=== PATIENT | male | born 1995 | race Caucasian/White ===

== ENCOUNTER 2020-11-10 10:24 | Emergency (ER) | payer SELFPAY ==
--- NOTE | ~2020-11-10 | XR_ITS ---
XR abdomen obstructive series DATE: 11/10/2020 11:26 INDICATION: Nausea, emesis TECHNIQUE: Supine and upright AP views COMPARISON: None FINDINGS: The lung bases are clear. Heart size appears normal. Distortion is intact. No visceromegaly is evident. There are some nondilated gas containing right lower quadrant small bowel segments with air-fluid lev els but the abdomen is otherwise relatively gasless. No intraperitoneal free air. Included skeletal structures are unremarkable. IMPRESSION: Mild right lower quadrant adynamic ileus is suggested Reviewed, dictated and finalized at [facility] Reviewed, dictated and finalized at [facility].
[2020-11-10 10:25] VITALS: BP 140/97; PULSE 97; RESP 16; TEMP 36.8; O2SAT 96
[2020-11-10] MEDS: SODIUM CHLORIDE 0.9% IV 1,000 ML 999 ML (10:49)
[2020-11-10] MEDS: ONDANSETRON INJ 4 MG/2 ML VIAL IV PUSH (11:06)
--- NOTE | 2020-11-10 12:16 | ED.NAVMDI ---
HPI - Nausea/Vomiting/Diarrhea General Chief complaint: Nausea/Vomiting/Diarrhea Stated complaint: vomiting Time Seen by Provider: 11/10/20 10:30 Source: patient Mode of arrival: ambulatory Limitations: no limitations History of Present Illness HPI Narrative: Patient comes in stating he has had nausea and vomiting since this am. He was taking oxycodone for a hand injury he had, and believes his nausea and emesis is related to that, since it seems to have been precipitated by the narcotic. He has had recent hand surgery, and states he has pins in his fingers from the surgery to hold them in place as they heal. He has been taking oxycodone, for hand pain. Nausea has been moderately severe, to severe, associated with recurrent emesis at home since he woke this am. He had some nausea last pm. Measures taken at home, have not decreased the nausea or vomiting. MD elicited complaint: nausea and vomiting Pertinent past history: other (narcotic use) Onset (ago): hour(s) Description of vomiting: food contents Associated nausea: Yes Associated abdominal pain: No Exacerbating factors: eating Relieving factors: vomiting (partial relief with emesis) Associated symptoms: denies other symptoms Treatment prior to arrival: fluids Related Data Allergies Allergy/AdvReac Type Severity Reaction Status Date / Time No Known Allergies Allergy Unverified 01/10/17 01:54 Review of Systems Constitutional: Constitutional: Reports no additional constitutional complaints Eyes: Eyes: Reports no additional eye complaints ENT: Reports system reviewed and no additional complaints, except as documented Cardiovascular: Cardiovascular: Reports no additional cardiovascular complaints Respiratory: Respiratory: Reports no additional respiratory complaints Gastrointestinal: Gastrointestinal: Reports no additional gastrointestinal complaints Genitourinary: Genitourinary: Reports no additional male genitourinary complaints Musculoskeletal: Musculoskeletal: Reports no additional musculoskeletal complaints Integumentary/Breasts: Skin/Breast: Reports system reviewed and no additional complaints, except as docu Neurologic: Reports system reviewed and no additional complaints, except as documented Psychiatric: Psychiatric: Reports no additional psychiatric complaints Endocrine: Endocrine: Reports no additional endocrine complaints Hematologic/Lymphatic: Hematologic/Lymphatic: Reports no additional hematologic/lymphatic complaints Allergic/Immunologic: Allergic/Immunologic: Reports no additional allergic/immunologic complaints PMFSH Past Medical History Medical History (Updated 11/11/20 @ 01:20 by Sami Alicia MD) No significant medical problems Surgical History Surgical History (Updated 11/11/20 @ 01:21 by Sami Alicia MD) History of myringotomy History of tonsillectomy Family History Family History (Updated 11/11/20 @ 01:22 by Sami Alicia MD) Mother Heart disease Atrial fibrillation Diabetes mellitus Social History Social History (Updated 11/11/20 @ 01:23 by Sami Alicia MD) Smoking status: Current every day smoker Tobacco type: e-cigarettes/vaping Alcohol use details: Denies Substance use type: marijuana Exam Const: General: healthy appearing, no acute distress and alert Orientation/consciousness: patient oriented x3 HENMT: Head: normal to inspection Ears: external ears normal and TM's normal bilaterally General nose exam: Normal external nose present Mouth: Yes Normal oral and palatal mucosa present Throat: posterior oropharynx normal Eyes: Conjunctivae: conjunctivae normal Neck: Neck: normal visual inspection and no lymphadenopathy Chest: Chest palpation & inspection: normal inspection of the chest Resp: Effort & Inspection: normal respiratory effort Auscultation: clear to auscultation bilaterally Cardio: Rate: regular rate Rhythm: regular rhythm GI: GI Palp: Yes Soft to palpation (nontender
[2020-11-10 12:45] VITALS: BP 129/87; PULSE 81; RESP 16; O2SAT 100
== END 2020-11-10 12:45 | disposition home or self-care (01) ==
PROVIDERS: Emergency Provider Emergency Medicine
DX: R11.2 Nausea with vomiting, unspecified (principal)
CPT/HCPCS: 74019; 96361; 96374; 99283; 99284; J2405; J7030

== ENCOUNTER 2022-08-21 12:32 | Outpatient (NON) | payer SELFPAY | END 2022-08-21 12:33 | disposition home or self-care (01) | LOC: CHSLAB 12:32 | PROVIDERS: Visit Provider Family Medicine | DX: Z20.2 Contact with and (suspected) exposure to infections with a predominantly sexual mode of transmission (principal); Z72.51 High risk heterosexual behavior | CPT/HCPCS: 87491; 87591; 87661 ==

== ENCOUNTER 2024-05-07 22:29 | Emergency (ER) | payer OTHER, SELFPAY ==
[2024-05-07 22:31] VITALS: BP 155/104; PULSE 91; RESP 18; TEMP 37.4; O2SAT 100
--- NOTE | 2024-05-07 22:43 | ED_ITS ---
HPI - General Adult General Chief complaint: Dental/Oral Stated complaint: tooth ache Time Seen by Provider: 05/07/24 22:35 History of Present Illness HPI narrative: Efren is a previously healthy 28M that presented to the ED with pain in his left lower molars. He has two bad teeth that are due to be extracted in a couple weeks. He cannot bear the pain in the mean time. No dysphagia, fevers, or respiratory distress. Related Data Allergies Allergy/AdvReac Type Severity Reaction Status Date / Time No Known Allergies Allergy Verified 05/07/24 22:50 Review of Systems Review of Systems: All systems reviewed & are unremarkable except as noted in HPI and below PMFSH Past Medical History Medical History No active medical problems No significant medical problems Surgical History Surgical History History of myringotomy History of placement of ear tubes History of surgery on arm History of tonsillectomy Hx of tonsillectomy Family History Family History Mother Diabetes mellitus Father No problems noted. 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 Gender identity (if verbalized by the patient): Male Exam Const: General: cooperative, healthy appearing, comfortable, no acute distress, well developed, alert, awake and Physically active Orientation/c onsciousness: oriented to person, oriented to place and oriented to time HENMT: Head: normal to inspection, normocephalic and atraumatic Ears: hearing grossly normal bilaterally and external ears normal Face/Nose/Sinus: Normal external nose present Other: left lower molars are broken with erythematous bases and TTP Eyes: General: appearance normal, both eyes and all related structures Periorbital: periorbital findings normal Sclera: sclerae normal Pupils: Equal, round and reactive pupils present Neck: Neck: normal visual inspection Chest: Chest palpation & inspection: normal inspection of the chest Resp: Effort & Inspection: normal respiratory effort Cardio: Jugular venous distension: no JVD Rate: regular rate Rhythm: regular rhythm GI: Inspection: normal to inspection GI Palp: Yes Soft to palpation Auscultation: normal bowel sounds Skin: General skin exam: normal color and no rashes or lesions noted Neuro: General: oriented to person, oriented to place and oriented to time Cranial nerves: Yes Equal, round and reactive pupils present Extrem: General: normal to inspection Course Course Emergency Course: ordered Augmentin and Toradol Vital Signs Vital signs: Vital Signs Temperature 99.4 F 05/07/24 22:31 Pulse Rate 91 05/07/24 22:31 Respiratory Rate 18 05/07/24 22:31 Blood Pressure 155/104 H 05/07/24 22:31 Pulse Oximetry 100 05/07/24 22:31 Oxygen Delivery Room Air 05/07/24 22:31 Temperature 99.4 F 05/07/24 22:31 Pulse Rate 91 05/07/24 22:31 Respiratory Rate 18 05/07/24 22:31 Blood Pressure 155/104 H 05/07/24 22:31 Pulse Oximetry 100 05/07/24 22:31 Oxygen Delivery Room Air 05/07/24 22:31 Medical Decision Making Vital Signs Vital Signs: Vital Signs Temperature 99.4 F 05/07/24 22:31 Pulse Rate 91 05/07/24 22:31 Respiratory Rate 18 05/07/24 22:31 Blood Pressure 155/104 H 05/07/24 22:31 Pulse Oximetry 100 05/07/24 22:31 Oxygen Delivery Room Air 05/07/24 22:31 Temperature 99.4 F 05/07/24 22:31 Pulse Rate 91 05/07/24 22:31 Respiratory Rate 18 05/07/24 22:31 Blood Pressure 155/104 H 05/07/24 22:31 Pulse Oximetry 100 05/07/24 22:31 Oxygen Delivery Room Air 05/07/24 22:31 Discharge Plan Discharge Clinical Impression: Chronic dental infection Patient Disposition: Home, Self-Care Condition: Stable Instructions: Antibiotic Form Prescriptions: New amoxicillin-pot clavulanate [Augmentin] 500-125 mg tablet 1 tablet PO Q12H Qty: 10 0RF hydrocodone-acetaminophen 5-325 mg tablet 1 tablet PO Q8H PRN (Reason: pain) Qty: 10 0RF Follow-up/Referrals: UNKNOWN,DOCTOR [Primary Care Provider] - Stand Alone Forms: Work/School Release IP
[2024-05-07] MEDS: KETOROLAC 30 MG/ML VIAL (*BKC) IM (22:57)
[2024-05-07] MEDS: AMOXICILLIN/CLAVULANATE K 875-125 MG TAB 1 TABLET PO (22:58)
[2024-05-07 23:19] VITALS: BP 148/96
== END 2024-05-07 23:19 | disposition home or self-care (01) ==
LOC: CHSED 23:08
PROVIDERS: Emergency Provider Family Medicine
DX: K04.7 Periapical abscess without sinus (principal); F17.290 Nicotine dependence, other tobacco product, uncomplicated
CPT/HCPCS: 96372; 99283; A9270; J1885

== ENCOUNTER 2024-09-11 22:37 | Observation (INO) | payer OTHER, SELFPAY ==
--- NOTE | ~2024-09-11 | CT_ITS ---
Non-contrast CT scan of the Abdomen and Pelvis Clinical indication: Epigastric pain Technique: 2.5 mm axial scans were obtained through the abdomen and pelvis without intravenous or or al contrast. Dose reduction technique was used on this scan by utilizing automated exposure control a nd iterative reconstruction technique. The dose-length product (DLP) was 789.06 mGy-cm. Findings: Images through the lung bases reveal no abnormalities. There is no evidence of renal or ureteral calculi. The kidneys and the ureters are nondilated. The liver, spleen, pancreas, gallbladder, and adrenals appear normal. There is no aortic aneurysm. There is no evidence of bowel obstruction. Fluid-filled large and small bowel loops raise the possibi lity of diarrhea illness. Images through the pelvis were performed. There is no evidence of ascites or lymphadenopathy. Urinary bladder unremarkable. Tiny fat-containing right inguinal hernia present. No adnexal mass seen. No as cites. Impression: Fluid-filled large and small bowel loops raise the possibility of diarrhea illness. Tiny fat-containing right inguinal hernia. Reviewed, dictated and finalized at [facility]. Impression: Fluid-filled large and small bowel loops raise the possibility of diarrhea illn ess. Tiny fat-containing right inguinal hernia.
[2024-09-11 22:37] VITALS: BP 154/90; PULSE 104; RESP 18; TEMP 35.9; O2SAT 97
--- OUTSIDE RECORDS SUMMARY | 2024-09-11 22:38 | XMS_ITS | Clinical Summary ---
Author Organization [facility] Address [address] [place] [address] Care Team Providers Care Hotel Maintenance Technician Name Role Phone Farhat Neves MD Primary Care Provider [phone] Winston Ramos MD Unavailable Unavail able Allergies Active Allergy Reactions Criticality Noted Date Comments Escitalopram Other (see comment) 01/18/2017 Abdominal discomfort/diarrhea Medications amoxicillin-cla vulanate (AUGMENTIN) 500-125 MG tablet Take 1 tablet (500 mg of amoxicillin total) by mouth 2 (two) times daily. Active HYDROcodone-shelbi taminophen (NORCO) 5-325 MG tablet Take 1 tablet by mouth every 8 (eight) hours as needed for Pain. Active Active Problems Problem Noted Date Diagnosed Date Atypical chest pain 01/18/2017 Family History Medical History Relation Comments Diabetes Mother Heart Disease Mother atrial fibrillation Mother Relation Status Comments Maternal Grandfather Maternal Grandmother Mother Paternal Grandfather Paternal Grandmother Social History Tobacco Use Types Packs/Day Years Used Date Smoking Tobacco: Former Smokeless Tobacco: Never Alcohol Use Standard Drinks/Week Comments No 0 (1 standard drink = 0.6 oz pur e alcohol) Sex and Gender Information Value Date Recorded Sex Assigned at Not on file Legal Sex Male 1:43 PM CDT Gender Identity Not on file Sexual Orientation Not on file 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 Not on file Not on file Last Filed Vital Signs Vital Sign Reading Time Taken Comments Blood Pressure 150/86 05/08/2024 12:29 AM [employer] Pulse 87 05/08/2024 12:29 AM [employer] Temperature 37 C (98.6 F) 05/08/2024 12:29 AM [employer] Respiratory Rate 16 05/08/2024 12:29 AM [employer] DEBE[employer] Oxygen Saturation 99% 05/08/2024 12:29 AM [employer] DEBE[employer] Inhaled Oxygen Concentration - - Weight 86.2 kg (190 lb) 05/08/2024 12:29 AM [employer] Height 182.9 cm (6') 05/08/2024 12:29 AM [employer] DEBEAD[employer] Body Mass Index 25.77 05/08/2024 12:29 AM [employer]BEAD[employer] Plan of Treatment Health Maintenance Due Date Last Done Comments Annual Physical 11/15/1998 Hepatitis C 11/15/2013 DTaP, Tdap and Td Vaccines ( 1 - Tdap) 11/15/2014 Hepatitis B Vaccines (1 of 3 - 19+ 3-dose series) 11/15/2014 COVID-19 Vaccine (2023-2 5 season) 2024 Influenza Adult (#1) 2024 HPV Vaccines Aged Out No longer eligi ble based on patient's age to complete this topic Meningococcal B Vaccine Aged Out No l onger eligible based on patient's age to complete this topic Meningococcal Vaccine Aged Out No fidel melyssa eligible based on patient's age to complete this topic Pneumococcal Vaccine: Pediat rics (0 to 5 Years) and At-Risk Patients (6 to 64 Years) Aged Out No longer eligible b ased on patient's age to complete this topic RSV Immunizations Under 20 Months Aged Out No longer eligible based on patient's age to complete this topic Insurance [address] [place] [address] Care Teams Hotel Maintenance Technician Relationship Specialty Start Date End Date Farhat Neves MD [address] [place] [address] PCP - General FAMILY PRACTICE 01/15/17 Winston Ramos MD [address] [place] [address] CARDIOVASCULAR DISEASE 01/18/17
--- OUTSIDE RECORDS SUMMARY | 2024-09-11 22:38 | XMS_ITS | Encounter Summary ---
Author Organization [facility] Address [address] [place] [address] Care Team Providers Care Employee'S Representative Name Role Phone Farhat Neves MD Primary Care Provider [phone] Winston Ramos MD Unavailable Unavail able Encounter Details Date Type Department Care Team (Late st Contact Info) Description 12/03/2018 Abstract SFL CONVERSION [address] [place] [address] , Generic Conversion, Social History Tobacco Use Types Packs/Day Years Used Date Smoking Tobacco: Former Alcohol Use Standard Drinks/Week Comments No 0 (1 standard drink = 0.6 oz pur e alcohol) Sex and Gender Information Value Date Recorded Sex Assigned at Not on file Legal Sex Male 1:43 PM CDT Gender Identity Not on file Sexual Orientation Not on file 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 Not on file Not on file documented as of this encounter Plan of Treatment Not on file documented as of this encounter Visit Diagnoses Not on filedocumented in this encounter Additional Health Concerns Infection Onset Date Last Indicated Resolved Time COVID-19 Rule Out 02/11/2022 02/11/2022 02/11/2022 8:11 AM CDT COVID-19 Rule Out 02/11/2022 02/11/2022 02/11/2022 8:17 AM CDT COVID-19 Confirmed 02/11/2022 02/11/2022 12:32 AM CDT documented as of this encounter Care Teams Employee'S Representative Relationship Specialty Start Date End Date Farhat Neves MD [address] [place] [address] PCP - General FAMILY PRACTICE 01/15/17 Winston Ramos MD [facility] [place] [address] CARDIOVASCULAR DISEASE 01/18/17 documented as of this encounter
--- NOTE | 2024-09-11 22:45 | ED_ITS ---
HPI - Nausea/Vomiting/Diarrhea General Chief complaint: Nausea/Vomiting/Diarrhea Stated complaint: nausea Time Seen by Provider: 09/11/24 22:43 Source: patient Mode of arrival: ambulatory Limitations: no limitations History of Present Illness HPI Narrative: 28 years old white male drove himself to the emergency room with sudden onset of nausea, vomiting and diarrhea for the last 4 hours. Patient reports diarrhea about 30 times, vomiting about 4 times, denies any fever or chills. Patient reported that his 1 and have your all some was sick 3-4 days ago with fever, got better in 24 hours. Patient is healthy otherwise Related Data Home Medications ?Medication ?Instructions ?Recorded ?Confirmed ?Last Taken ?Type No Home Medications 09/11/24 09/11/24 Unknown History Allergies Allergy/AdvReac Type Severity Reaction Status Date / Time No Known Allergies Allergy Verified 09/11/24 22:40 Review of Systems 2 Review of Systems: All systems reviewed & are unremarkable except as noted in HPI and below PMFSH Past Medical History Medical History No significant medical problems No active medical problems Surgical History Surgical History History of myringotomy History of tonsillectomy History of surgery on arm History of placement of ear tubes Hx of tonsillectomy Family History Family History Mother Diabetes mellitus Father No problems noted. 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 Musculoskeletal: Normal range of motion, nontender back Neurologic: Alert and oriented ?3, FIBER DRIER OPERATOR is normal as tested, no gross motor deficit Course Vital Signs Vital signs: Vital Signs Temperature 35.9 C L 09/11/24 22:37 Pulse Rate 104 H 09/11/24 22:37 Respiratory Rate 18 09/11/24 22:37 Blood Pressure 154/90 H 09/11/24 22:37 Pulse Oximetry 97 09/11/24 22:37 Oxygen Delivery Room Air 09/11/24 22:37 Temperature 36.9 C 09/12/24 00:55 Pulse Rate 96 09/12/24 00:55 Respiratory Rate 18 09/12/24 00:55 Blood Pressure 136/88 09/12/24 00:55 Pulse Oximetry 98 09/12/24 00:55 Oxygen Delivery Room Air 09/12/24 00:55 MDM - Nausea/Vomiting/Diarrhea MDM Narrative Medical decision making narrative: patient presents with sudden onset of nausea, vomiting and diarrhea for hour prior to arrival to the emergency room Vital signs showing blood pressure 154/90, heart rate of 104, temperature 35.9? otherwise within normal limit Physical examination showing pale patient, with dry heaves. Differential diagnosis include viral gastroenteritis, less likely dehydration or electrolyte imbalance Blood workup today includes CBC, CMP showed WBC of 26.5 HIGH LIKELY SECONDARY TO STRESS SECONDARY TO VOMITING AND INFLAMMATION SECONDARY TO VIRAL INFECTION, hemoglobin 18.1 AND creatinine 1.4 SECONDARY TO LOSING QUITE A BIT OF FLUID Patient tested negative for flu, RSV and COVID PATIENT RECEIVED 2 L OF NORMAL SALINE, 8 MG OF ZOFRAN IV, PATIENT IS NOT ABLE TO TOLERATE ANY P.O. INTAKE WITH FREQUENT VOMITING ADMIT TO HOSPITALIST, OBSERVATION FOR IV FLUID Differential Diagnosis Differential diagnosis: Likely other ( as above) Medical Records Attestation: I reviewed the patient's medical records. Lab Data Attestation: I reviewed the patient's lab results. 09/11/24 23:16 09/11/24 23:16 Labs: Lab Results 09/11/24 09/11/24 Range/Units 22:52 23:16 WBC 26.5 H* (4.8-10.8) K/mm3 RBC 6.25 H (4.70-6.10) M/mm3 Hgb 18.1 H (14.0-18.0) g/dL Hct 53.9 (40.0-54.0) % MCV 86.2 (78.0-102.0) fL MCH 29.0 (27.0-31.0) pg MCHC 33.6 (32-36) g/dL RDW 12.0 (11.6-14.4) % Plt Count 303 (150-420) K/mm3 MPV 10.4 (8.7-11.0) fl Immature Gran % (Auto) Not Reportable Neut % (Auto) Not Reportable Lymph % (Auto) Not Reportable Hayes % (Auto) Not Reportable Eos % (Auto) Not Reportable Baso % (Auto) Not Reportable Lymph # (Auto) Not Reportable Hayes # (Auto) Not Reportable Eos # (Auto) Not Reportable Baso # (Auto) Not Reportable Abs Immat Gran (auto) Not Reportable Absolute Neuts (auto) Not Reportable Absolute Nucleated RBC Not Reportable Neutrophils % (Manual) 94 H (46-73) % Band Neutrophils % 0 (0-6) % Lymphocytes % (Manual) 2 L (18-44) % Monocytes % (Manual) 3 (3-9) % Eosinophils % (Manual) 1 (1-6) % Basophils % (Manual) 0 (0-1) % Nucleated RBC % Not Reportable Abs Neuts (Manual) 24.91 H (1.3-6.7) K/mm3 Abs Lymphs (Manual) 0.53 L (1.1-4.5) K/mm3 Abs Monocytes (Manual) 0.79 (0.1-0.90) K/mm3 Absolute Eos (Manual) 0.26 (0.02-0.50) K/mm3 Abs Basophils (Manual) 0.00 (0-0.1) K/mm3 Platelet Estimate Adequate (Adequate) Schistocytes Not Reportable Sodium 141 (136-145) mmol/L Potassium 4.1 (3.5-5.1) mmol/L Chloride 102 (98-108) mmol/L Carbon Dioxide 27 (21-32) mmol/L Anion Gap 12 (4-12) mmol/L BUN 17 (7-18) mg/dL Creatinine 1.48 H (0.70-1.30) mg/dL Estim Creat Clear Calc 83 ml/min Estimated GFR 57 L (59 - ) Glucose 124 H (70-99) mg/dL Calculated Osmolality 294 (285-295) mOsm/kg Calcium 10.1 (8.5-10.1) mg/dL Total Bilirubin 0.9 (0.00-1.00) mg/dL AST 46 H (15-37) U/L ALT 99 H (16-63) U/L Alkaline Phosphatase 105 (46-116) U/L Total Protein 9.1 H (6.4-8.2) g/dL Albumin 4.9 (3.4-5.0) g/dL Influenza A (RT-PCR) Negative (Negative) Influenza B (RT-PCR) Negative (Negative) RSV (RT-PCR) Negative (Negative) SARS-CoV-2 RNA (RT-PCR) Negative (Negative) Critical Care Time Critical Care Time Critical Care Time: Yes Total Critical Care Time: 30 Discharge Plan Discharge Clinical Impression: Gastroenteritis, JANE (acute kidney injury), Intractable vomiting Patient Disposition: Still a Patient Condition: Stable Additional Instructions: ADMIT TO HOSPITALIST Patient Language: Sami Prescriptions: No Action No Home Medications Follow-up/Referrals: UNKNOWN,DOCTOR [Primary Care Provider] -
--- NOTE | 2024-09-11 22:48 | PC.NURSE ---
covid swab sent to lab
[2024-09-11] MEDS: SODIUM CHLORIDE 0.9% IV 2,000 ML 999 ML IV CONT (23:21)
[2024-09-11 23:22] LABS: Hematocrit 53.9 % (40.0-54.0); Hemoglobin 18.1 g/dL (14.0-18.0); Mean Corpuscular HGB Conc 33.6 g/dL (32-36); Mean Corpuscular Volume 86.2 fL (78.0-102.0); Mean Platelet Volume 10.4 fl (8.7-11.0); Platelet Count Result 303 K/mm3 (150-420); Red Blood Count 6.25 M/mm3 (4.70-6.10)
[2024-09-11] MEDS: ONDANSETRON INJ 4 MG/2 ML VIAL 8 MG IV PUSH (23:22)
--- NOTE | 2024-09-11 23:22 | PC.NURSE ---
patient had active episode of emesis as RN was in patient room to start IV. patient given fresh emesis bag and wash cloth. iv started and patient medicated per order, see MAR. call light within reach and patient given warm blanket per request. lights dimmed for comfort.
[2024-09-11 23:27] LABS: White Blood Count 26.5 K/mm3 (4.8-10.8)
[2024-09-11 23:37] LABS: Band Neutrophils Percent 0 % (0-6); Basophils Percent Manual 0 % (0-1); Eosinophils Absolute Manual 0.26 K/mm3 (0.02-0.50); Eosinophils Percent Manual 1 % (1-6); Lymphocytes Absolute Manual 0.53 K/mm3 (1.1-4.5); Lymphocytes Percent Manual 2 % (18-44); Monocytes Absolute Manual 0.79 K/mm3 (0.1-0.90); Monocytes Percent Manual 3 % (3-9); Neutrophils Absolute Manual 24.91 K/mm3 (1.3-6.7); Neutrophils Percent Manual 94 % (46-73); Platelet Estimate Adequate (Adequate)
[2024-09-11 23:37] LABS: Influenza A QL RT-PCR Negative (Negative); Influenza B QL RT-PCR Negative (Negative); RSV RNA, RT-PCR Negative (Negative); SARS-CoV-2 RNA PCR Negative (Negative)
[2024-09-11 23:38] LABS: Alanine Aminotransferase 99 U/L (16-63); Albumin Level 4.9 g/dL (3.4-5.0); Alkaline Phosphatase 105 U/L (46-116); Anion Gap 12 mmol/L (4-12); Aspartate Amino Transferase 46 U/L (15-37); Bilirubin,Total 0.9 mg/dL (0.00-1.00); Blood Urea Nitrogen 17 mg/dL (7-18); Calcium 10.1 mg/dL (8.5-10.1); Carbon Dioxide 27 mmol/L (21-32); Chloride 102 mmol/L (98-108); Estimated CRCL calculation 83 ml/min; Estimated Glomerular Filt Rate 57; Glucose 124 mg/dL (70-99); Osmolality Calculated 294 mOsm/kg (285-295); Potassium 4.1 mmol/L (3.5-5.1); Sodium 141 mmol/L (136-145); Total Protein 9.1 g/dL (6.4-8.2)
[2024-09-12] VITALS (7 sets, daily range): BP systolic 115–136; BP diastolic 68–88; PULSE 89–97; RESP 17–20; TEMP 36.8–38.2; O2SAT 96–98; BMI 30.9
--- NOTE | 2024-09-12 00:12 | PC.NURSE ---
patient checked, adjusted on stretcher for comfort. ivf infusing. patient given ice chips per request. RN monitoring. patient update provided.
[2024-09-12] MEDS: diphenhydrAMINE HCl INJ 50 MG/ML VIAL IV PUSH (01:00)
[2024-09-12] MEDS: METOCLOPRAMIDE HCL INJ 10 MG/2 ML VIAL IV PUSH (01:00)
--- NOTE | 2024-09-12 01:10 | PC.NURSE ---
patient medicated per order after second episode of emesis as witness by RN and ERP. IVF infused. ERP updated. patient aware and agreeable to plan for admission. call light within reach.
[2024-09-12] MEDS: SODIUM CHLORIDE 0.9% IV 1,000 ML 200 ML IV CONT ×5 (01:48→23:07)
--- NOTE | 2024-09-12 01:51 | ADMGEN ---
This patient, Efren Amaral, was admitted to 2nd Floor Room 226-1. Patient oriented to hospital policies and general routines including ID bracelet, bed and alarms, visiting hours, pain management, procedures, bathroom and other care routines, personal items, smoking policy, room service/diet, and visiting hours. Information on how to activate the Rapid Response Team has been discussed. Patient are encouraged to report perceived risks to care and to ask questions if they do not understand what they are told or what they should do.
[2024-09-12 05:46] LABS: Basophils Absolute Auto 0.02 K/mm3 (0.00-0.10); Basophils Percent Auto 0.1 % (0.0-1.0); Eosinophils Absolute Auto 0.01 K/mm3 (0.02-0.50); Eosinophils Percent Auto 0.1 % (1.0-6.0); Hematocrit 47.1 % (40.0-54.0); Hemoglobin 15.7 g/dL (14.0-18.0); Immature Granulocyte Percent A 0.6 % (0.0-0.0); Lymphocytes Absolute Auto 0.22 K/mm3 (1.10-4.50); Lymphocytes Percent Auto 1.4 % (18.0-42.0); Mean Corpuscular HGB Conc 33.3 g/dL (32-36); Mean Corpuscular Hemoglobin 28.9 pg (27.0-31.0); Mean Corpuscular Volume 86.6 fL (78.0-102.0); Mean Platelet Volume 9.9 fl (8.7-11.0); Monocytes Absolute Auto 0.46 K/mm3 (0.10-0.90); Neutrophils Absolute Auto 14.72 K/mm3 (1.70-7.20); Neutrophils Percent Auto 94.8 % (50.0-70.0); Platelet Count Result 223 K/mm3 (150-420); Red Blood Count 5.44 M/mm3 (4.70-6.10); Red Cell Distribution Width 12.1 % (11.6-14.4); White Blood Count 15.5 K/mm3 (4.8-10.8)
[2024-09-12 05:55] LABS: Anion Gap 9 mmol/L (4-12); Blood Urea Nitrogen 15 mg/dL (7-18); Calcium 8.3 mg/dL (8.5-10.1); Carbon Dioxide 27 mmol/L (21-32); Chloride 107 mmol/L (98-108); Estimated CRCL calculation 84 ml/min; Estimated Glomerular Filt Rate 57; Glucose 126 mg/dL (70-99); Osmolality Calculated 298 mOsm/kg (285-295); Sodium 143 mmol/L (136-145)
--- OUTSIDE RECORDS SUMMARY | 2024-09-12 07:17 | XMS_ITS | Encounter Summary ---
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
--- OUTSIDE RECORDS SUMMARY | 2024-09-12 07:17 | XMS_ITS | Clinical Summary ---
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 Not on file Not on file Not on file Last Filed Vital Signs Vital Sign Reading Time Taken Comments Blood Pressure 150/86 05/08/2024 12:29 AM MASTER CONTROL OPERATOR Pulse 87 05/08/2024 12:29 AM MASTER CONTROL OPERATOR Temperature 37 C (98.6 F) 05/08/2024 12:29 AM MASTER CONTROL OPERATOR Respiratory Rate 16 05/08/2024 12:29 AM MASTER CONTROL OPERATOR Oxygen Saturation 99% 05/08/2024 12:29 AM MASTER CONTROL OPERATOR Inhaled Oxygen Concentration - - Weight 86.2 kg (190 lb) 05/08/2024 12:29 AM MASTER CONTROL OPERATOR Height 182.9 cm (6') 05/08/2024 12:29 AM MASTER CONTROL OPERATOR Body Mass Index 25.77 05/08/2024 12:29 AM MASTER CONTROL OPERATOR Plan of Treatment Health Maintenance Due Date [...] complete this topic Insurance [address] [place] [address] Care Teams Armor Senior Sergeant Relationship Specialty Start Date End Date Farhat Neves MD [address] [place] [address] PCP - General FAMILY PRACTICE 01/15/17 Winston Ramos MD [address] [place] [address] CARDIOVASCULAR DISEASE 01/18/17
[2024-09-12 07:54] LABS: Lipase 21 U/L (16-77)
[2024-09-12 08:21] LABS: Cholesterol 158 mg/dL (0-200); HDL Direct 48 mg/dL (40-60); LDL Cholesterol Calculated 102 mg/dL (<130); Triglycerides 42 mg/dL (0-150)
--- NOTE | 2024-09-12 08:26 | P.HP_ITS ---
H&P: HPI History of Present Illness Date/Time: 09/12/24 08:26 Chief Complaint: N/V/D/ABD pain Narrative: patient is a 28-year-old male who presented to the emergency department with complaints intractable nausea and vomiting and diarrhea. Patient reported symptoms onset was about 4 hours prior to arrival with no relief of symptoms. Patient did report he has a past medical history of nonalcoholic pancreatitis otherwise no past medical history. patient did report his child at home was sick 3-4 days prior with fever and episode of vomiting which all resolved. Patient states symptoms came on rapidly denied any fever did endorse chills and abdominal pain attempted to take some OTC medication but with no relief of symptoms. Patient denied any chest pain or shortness a breath. initial findings in the emergency department show an elevated WBC of 26.5 which could be infectious versus inflammatory as well acute kidney injury with a creatinine of 1.48. viral panel for influenza/RSV /COVID negative, electrolytes stable. patient was started on IV fluids and antiemetics and admitted to the medical unit. due to patient's history I did order a lipase which was [address] abdomen is pending. Patient did report history intermittent marijuana use denies any alcohol. patient states he has been under a lot of stress for the last 2 weeks at home as well he travels for work poor diet has gained for 30 lb in the last few years. Review of Systems Review of Systems: All systems reviewed & are unremarkable except as noted in HPI and below PMFSH Past Medical History Medical History Marijuana use Pancreatitis No significant medical problems No active medical problems Surgical History Surgical History History of myringotomy History of tonsillectomy History of surgery on arm History of placement of ear tubes Hx of tonsillectomy Family History Family History Mother Diabetes mellitus Father No problems noted. Mother Heart disease Atrial fibrillation Diabetes mellitus Social History Social History Smoking packs per day: 1 Smoking cigarettes per day: 20.0 Years smoked: 7 Smoking pack-years: 7.00 Smoking status: Current every day smoker Tobacco type: e-cigarettes/vaping Smokeless tobacco user: other Second hand tobacco smoke exposure: Yes Additional smoking assessment comments: uses E cigarettes Alcohol intake: never Alcohol use details: Denies Substance use: current Substance use type: marijuana Last use: 09/08/24 Do You Feel Safe in your Home?: Yes Lack of Transportation: No Lack of Food: Never True Current Housing: I Have Housing Concerned About Future Housing: No Difficulty Paying Gas/Electric Bills: No Difficulty Paying for Meds: No Currently Unemployed: No Education: Associate Degree Difficulty w/ Childcare or Family Care: No Living arrangements: with family Occupation/Education: occupation Additional occupation/education comments: horse farm Gender identity (if verbalized by the patient): Male Spiritual care concerns: No Meds Home Medications and Allergies Home Medications ?Medication ?Instructions ?Recorded ?Confirmed ?Type No Home Medications 09/11/24 09/11/24 History Allergies Allergy/AdvReac Type Severity Reaction Status Date / Time No Known Allergies Allergy Verified 09/11/24 22:40 Vital Signs Vital Signs - 24 hr 09/11/24 22:37 09/12/24 00:55 09/12/24 02:00 Temperature 96.6 F L 98.5 F 98.3 F Pulse Rate 104 H 96 89 Respiratory Rate 18 18 17 Blood Pressure 154/90 H 136/88 135/74 Pulse Oximetry 97 98 96 Oxygen Delivery Room Air Room Air Room Air 09/12/24 02:07 Temperature Pulse Rate 96 Respiratory Rate 18 Blood Pressure Pulse Oximetry 98 Oxygen Delivery Room Air Exam Const: General: no acute distress and uncomfortable HENMT: Mouth: Yes moist mucous membranes Eyes: General: appearance normal, both eyes and all related structures Pupils: Equal, round and reactive pupils present Neck: Neck: no JVD Resp: Effort & Inspection: normal respiratory effort Auscultation: clear to auscultation bilaterally Cardio: Rate: tachycardic Rhythm: regular rhythm GI: GI Palp: Yes Soft to palpation and Yes Tenderness to palpation present (GI) Auscultation: abnormal bowel sounds (Hyperactive) Other: Patient reported tenderness to mid upper left quadrant with palpation. Skin: General skin exam: normal color and no rashes or lesions noted Wounds: no wounds Neuro: Speech: normal speech Sensory Exam: normal sensation Extrem: General: normal to inspection Psych: Mental Status: mental status grossly normal Affect: normal affect H&P: Results Labs Labs: Short CBC 09/11/24 09/12/24 Range/Units 23:16 05:41 WBC 26.5 H* 15.5 H (4.8-10.8) K/mm3 Hgb 18.1 H 15.7 (14.0-18.0) g/dL Hct 53.9 47.1 (40.0-54.0) % Plt Count 303 223 (150-420) K/mm3 BMP 09/11/24 09/12/24 23:16 05:41 Sodium 141 143 Potassium 4.1 4.0 Chloride 102 107 Carbon Dioxide 27 27 BUN 17 15 Creatinine 1.48 H 1.47 H Glucose 124 H 126 H Calcium 10.1 8.3 L Liver Function 09/11/24 Range/Units 23:16 Total Bilirubin 0.9 (0.00-1.00) mg/dL AST 46 H (15-37) U/L ALT 99 H (16-63) U/L Alkaline Phosphatase 105 (46-116) U/L Albumin 4.9 (3.4-5.0) g/dL Assessment and Plan Assessment and plan (1) Gastroenteritis: Code(s): K52.9 - Noninfective gastroenteritis and colitis, unspecified Status: Acute Assessment and Plan: patient with intractable nausea and vomiting no relief with OTC medications does have history of pancreatitis and states at 1 time he was supposed to get his gallbladder taken out * WBC 26.4 likely inflammatory versus infectious * lipase within normal limits * patient reports history of pancreatitis CT abdomen pending * lipid panel pending * antiemetics Zofran and Reglan p.r.n. * IV fluids * PPI * patient does have history of marijuana use could be cannabinoid induced hyperemesis * replenish electrolytes as needed * NPO will advance to clear liquid as tolerated (2) Intractable vomiting: Code(s): R11.10 - Vomiting, unspecified Status: Acute Assessment and Plan: SEE ABOVE #1 (3) Cannabinoid hyperemesis syndrome: Code(s): R11.2 - Nausea with vomiting, unspecified; F12.90 - Cannabis use, unspecified, uncomplicated Status: Acute Assessment and Plan: patient reports intermittent use marijuana does not on a regular basis * HX of marijuana use * drug screen pending * will check for pancreatitis and gallbladder * Cessation recommended (4) JANE (acute kidney injury): Code(s): N17.9 - Acute kidney failure, unspecified Status: Acute Assessment and Plan: * Cr. 1.48 * aggressive IV fluid hydration * likely secondary to nausea vomiting diarrhea * serial renal function (5) Transaminitis: Code(s): R74.01 - Elevation of levels of liver transaminase levels Status: Acute Assessment and Plan: * AST/ALT elevated * IV Fluids * Hepatic panel pending * CT ABD pending (6) Leukocytosis: Code(s): D72.829 - Elevated white blood cell count, unspecified Status: Acute Plan Code status: Full code per patient DVT prophylaxis: NA Ambulatory Stress ulcer prophylaxis: Protonix 40 BID PT/OT notes: ambulatory Disposition: patient continues admission to the medical unit for nausea vomiting and diarrhea advancing to clear liquids today will continue with aggressive IV fluids and antiemetics CT abdomen pending. will advance patient's as tolerated, plan to return home at discharge when medically stable. Quality If No VTE Prophylaxis Answer both mechanical and pharmacologic: Reason no mechanical VTE proph: low risk/not indicated -Patient's previous records reviewed on admission -ER notes reviewed in detail on admission -discussed all findings and current treatment plan with patient/Family/POA -Consultations reviewed for recommendations -Patient's disposition for safe discharge discussed with case management manager Dictation performed by [employer] direct speech recognition software, therefore manager of financial reporting variants and typographical errors may occur. Hospitalist MIPS Advance Care Plan I have confirmed that the patient's Advanced Care Plan is present, code status is documented, or surrogate decision maker is listed in patient medical record.: Yes Medication Reconciliation I have utilized all available resources to obtain, update and review the patients current medications (includes all prescriptions, OTC, herbals, ca nnabis, and nutritional supplements).: Yes The patient is not eligible for med reconciliation; the patient is in a emergent medical situation where delaying treatment would jeopardize the patients health.: No
[2024-09-12 09:27] LABS: Alanine Aminotransferase 81 U/L (16-63); Albumin Level 3.7 g/dL (3.4-5.0); Alkaline Phosphatase 72 U/L (46-116); Aspartate Amino Transferase 33 U/L (15-37); Bilirubin Direct 0.3 mg/dL (0-0.2); Bilirubin,Total 0.8 mg/dL (0.00-1.00); Total Protein 7.1 g/dL (6.4-8.2)
[2024-09-12 09:40] LABS: Amphetamine Screen Urine Negative (Negative); Barbiturate Screen Urine Negative (Negative); Benzodiazepines Screen Urine Negative (Negative); Cannabinoid Screen Urine Positive (Negative); Cocaine Screen Urine Negative (Negative); Methadone Screen Urine Negative (Negative); Opiate Screen Urine Negative (Negative); Phencyclidine Screen Urine Negative (Negative)
[2024-09-12] MEDS: PANTOPRAZOLE SODIUM IV 40 MG VIAL IV PUSH ×2 (12:47→21:24)
[2024-09-12] MEDS: ACETAMINOPHEN 325 MG TABLET 650 MG PO ×2 (15:09→21:24)
[2024-09-12] MEDS: ONDANSETRON INJ 4 MG/2 ML VIAL IV PUSH (15:14)
[2024-09-13] VITALS: BP 107/70; PULSE 90; RESP 20; TEMP 36.9; O2SAT 100
[2024-09-13] MEDS: SODIUM CHLORIDE 0.9% IV 1,000 ML 200 ML IV CONT (04:01)
[2024-09-13 05:30] LABS: Hematocrit 40.9 % (40.0-54.0); Hemoglobin 13.7 g/dL (14.0-18.0); Mean Corpuscular HGB Conc 33.5 g/dL (32-36); Mean Corpuscular Hemoglobin 28.9 pg (27.0-31.0); Mean Corpuscular Volume 86.3 fL (78.0-102.0); Mean Platelet Volume 9.8 fl (8.7-11.0); Platelet Count Result 184 K/mm3 (150-420); Red Blood Count 4.74 M/mm3 (4.70-6.10); Red Cell Distribution Width 11.9 % (11.6-14.4); White Blood Count 8.8 K/mm3 (4.8-10.8)
[2024-09-13 05:50] LABS: Alanine Aminotransferase 62 U/L (16-63); Albumin Level 3.1 g/dL (3.4-5.0); Alkaline Phosphatase 69 U/L (46-116); Anion Gap 9 mmol/L (4-12); Aspartate Amino Transferase 23 U/L (15-37); Bilirubin,Total 1.2 mg/dL (0.00-1.00); Blood Urea Nitrogen 9 mg/dL (7-18); Calcium 7.9 mg/dL (8.5-10.1); Carbon Dioxide 27 mmol/L (21-32); Chloride 105 mmol/L (98-108); Estimated CRCL calculation 92 ml/min; Estimated Glomerular Filt Rate > 60; Glucose 108 mg/dL (70-99); Osmolality Calculated 291 mOsm/kg (285-295); Potassium 3.6 mmol/L (3.5-5.1); Sodium 141 mmol/L (136-145); Total Protein 6.2 g/dL (6.4-8.2)
[2024-09-13 08:00] VITALS: BP 136/86; PULSE 90; RESP 12; TEMP 37.3; O2SAT 98
[2024-09-13] MEDS: PANTOPRAZOLE SODIUM IV 40 MG VIAL IV PUSH (09:55)
--- NOTE | 2024-09-13 12:10 | P.DS_ITS ---
DS: Admitting Diagnosis Discharge Date 09/13/24 Admitting Diagnosis Gastroenteritis Intractable vomiting Cannabinoid hyperemesis syndrome JANE Transaminitis Leukocytosis DS: Summary Hospital Course Reason for hospitalization: Gastroenteritis Intractable vomiting Cannabinoid hyperemesis syndrome JANE Transaminitis Leukocytosis Hospital Course: This is a 28-year-old male who presented to the hospital with complaints of nausea, vomiting, diarrhea. Workup in the hospital included an abdomen/pelvis CT which showed fluid-filled large and small bowel loops raising the possibility of diarrhea illness, tiny fat containing right inguinal hernia. Initial labs shown a white blood cell count of 26.5, hemoglobin 18.1, creatinine 1.48, blood sugars ranging 108-126, AST 46, ALT 99. Urine drug screen was positive for cannabinoids. Respiratory panel was negative for influenza a and B, RSV, COVID. Patient was given IV fluids and antiemetics while in the hospital. He was able to advance to a clear liquid diet last night and is now tolerating regular food and fluids. His labs today showed a white blood cell count of 8.8, creatinine is now down to 1.34, liver enzymes resolved. He is stable for discharge at this time. He will need to follow up with his primary care doctor in 1 week. Final diagnosis: Gastroenteritis, acute kidney injury, transaminitis, cannabinoid hyperemesis syndrome, intractable vomiting Status at Discharge Cognitive/behavioral status at discharge: Alert and oriented x3 Functional status at discharge: independent ambulation Overall status at discharge: patient is progressing back to baseline Time Spent with Patient Time attestation: Total time spent providing and/or coordinating discharge services: Time spent: Greater than 30 minutes Exam Narrative: General: In no acute distress, well nourished Head: atraumatic, no encephalopathy Eyes: PERRLA, sclera clear ENT: moist mucous membranes, nasal passages clear Neck: supple, no JVD, no adenopathy, trachea midline Cardiac: Normal S1 and S2. No murmur, gallops or friction rubs, peripheral pulses intact. Respiratory: Lungs clear to auscultation, no adventitious lung sounds, currently on room air Gastrointestinal: soft, non-distended, non-tender, normoactive bowel sounds. : voiding without difficulty. Extremities: moves all extremities well, no edema Skin: clean, dry, intact. No wounds or lesions. Neuro: Alert and oriented x4, cranial nerves intact, no neuro deficits. Psych: normal mood, normal affect, interactive DS: Data Data Completed and Pending Completed studies during hospitalization: Abdomen/pelvis CT Pending studies at discharge: None Labs on day of discharge: Labs from last 24 hours 09/13/24 05:23 WBC 8.8 RBC 4.74 Hgb 13.7 L Hct 40.9 MCV 86.3 MCH 28.9 MCHC 33.5 RDW 11.9 Plt Count 184 MPV 9.8 Sodium 141 Potassium 3.6 Chloride 105 Carbon Dioxide 27 Anion Gap 9 BUN 9 Creatinine 1.34 H Estim Creat Clear Calc 92 Estimated GFR > 60 Glucose 108 H Calculated Osmolality 291 Calcium 7.9 L Total Bilirubin 1.2 H AST 23 ALT 62 Alkaline Phosphatase 69 Total Protein 6.2 L Albumin 3.1 L Procedures/Treatments: None Discharge Plan Discharge Attending physician on discharge: Phuc Kevin Consulting providers: Bianca Torres Discharging Clinician: Claire Willis Anticipated Discharge Date/Time: 09/13/24 12:08 Patient Disposition: Home, Self-Care Activity: as tolerated Diet: as tolerated and regular Discharge Instructions: * Continue to advance diet to regular diet. * Stay hydrated * Follow up with your primary care doctor in 1 week. 09/21/2024 @ 0915 Patient Instructions: Antibiotic Form Patient Language: Turkmen Stand Alone Forms: General Discharge Information Follow-up/Referrals: Sandeep Toth DO [Primary Care Provider] - 1 week Discharge Medications: No Action No Home Medications Date of admission: 09/12/24 00:59 Primary Care Provider: Sandeep oTth Admitting Provider: Phuc Kevin Attending physician on admission: Claire Willis Condition: Improved Quality VTE Prophylaxis VTE prophylaxis: mechanical ordered Hospitalist MIPS Heart Failure (Exclusion) Patient has history of Heart Transplant or Left Ventricular Assistive Device?: No IF YES, STOP HERE Heart Failure (Qualifier) Patient has current or prior documentation of LVEF less than or equal to 40%, or mod/servere depressed LVSF?: No IF NO, STOP HERE
--- NOTE | 2024-09-13 15:15 | PC.NURSE ---
Pt discharged to home . Discharge instructions given to pt. Follow up appointment with Dr. zapata. S&S to watch for discussed. Pt verbalized understanding of all instructions.
--- NOTE | 2024-09-14 10:49 | PC.NURSE ---
Called patient for follow up visit. VM not set up, unable to leave VM.
== END 2024-09-13 14:25 | disposition home or self-care (01) ==
LOC: CHSED 09-12 01:05 → CHS2ND 09-12 07:14
PROVIDERS: Nurse Practitioner Family; Admitting Provider Internal Medicine; Emergency Provider Emergency Medicine; PCP Family Medicine; Visit Provider Nurse Practitioner Acute Care
DX: K52.9 Noninfective gastroenteritis and colitis, unspecified (principal); N17.9 Acute kidney failure, unspecified; R11.2 Nausea with vomiting, unspecified; F12.90 Cannabis use, unspecified, uncomplicated; R74.01 Elevation of levels of liver transaminase levels; D72.829 Elevated white blood cell count, unspecified; K40.90 Unilateral inguinal hernia, without obstruction or gangrene, not specified as recurrent; F17.290 Nicotine dependence, other tobacco product, uncomplicated; Z20.822 Contact with and (suspected) exposure to COVID-19
CPT/HCPCS: 36415; 74176; 80048; 80053; 80061; 80076; 80307; 83690; 85025; 85027; 87637; 96361; 96374; 96375; 96376; 99285; A9270; G0378; J1200; J2405; J2470; J2765; J7030